=== PATIENT | female | born 2000 | race Caucasian/White ===

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

== ENCOUNTER 2021-02-04 04:00 | Outpatient (CLI) | payer BC, SELFPAY ==
[2021-02-04] VITALS (30 sets, daily range): BP systolic 99–121; BP diastolic 54–67; PULSE 56–107; RESP 17–18; TEMP 35.8–36.5; O2SAT 97–100; BMI 37.0
[2021-02-04 05:08] LABS: Bilirubin Urine Neg (Negative); Blood Urine Neg (Negative); Glucose Urine UA Norm (Normal); Ketones Urine Negative (Negative); Leukocyte Esterase Urine Negative (Negative); Nitrate Urine Negative (Negative); Protein Urine Neg (Negative); Urine Color Yellow (Yellow); Urobilinogen Urine Norm (Negative); pH Urine 7 (5-7)
[2021-02-04 05:09] LABS: Add Urine Culture? No; Bacteria Urine 3+ /hpf; Mucus Urine 2+ /hpf; RBC Urine 0-4 /hpf (0-2); Squamous Epithelial Cell Urine >100 /hpf (0-5); WBC Urine 0-4 /hpf (0-5)
[2021-02-04] MEDS: promethazine 25 mg/mL SDV 1 mL IM (05:56)
[2021-02-04 08:02] LABS: Basophils # 0.1 10^3/uL (0.0-0.1); Basophils % 0.4 %; Eosinophils % 0.1 %; Hematocrit 33.5 % (37.0-47.0); Hemoglobin 10.8 g/dL (11.5-15.3); Lymphocytes # 1.3 10^3/uL (1.5-6.5); Mean Corpuscular HGB Conc 32.2 g/dL (30.0-36.0); Mean Corpuscular Hemoglobin 27.5 pg (28.0-34.0); Mean Corpuscular Volume 85.2 fL (81-99); Mean Platelet Volume 10.8 fL (7.4-10.4); Monocytes # 0.3 10^3/uL (0.2-0.9); Monocytes % 2.5 %; Neutrophils # 10.98 10^3/uL (1.8-8.0); Neutrophils % 86.4 %; Nucleated Red Blood Cells % 0 %; Platelet Count 237 10^3/cmm (130-400); Red Blood Count 3.93 10^6/uL (4.1-5.3); Red Cell Distribution Width 13.4 % (12.1-15.1); White Blood Count 12.7 10^3/uL (4.5-13.0)
[2021-02-04 08:14] LABS: Alanine Aminotransferase 6 U/L (0-33); Albumin Level 3.3 g/dL (3.5-5.2); Alkaline Phosphatase 142 IU/L (35-105); Anion Gap 15.3 (5-19); Aspartate Amino Transferase 9 U/L (0-32); Blood Urea Nitrogen 5 mg/dL (6-20); Calcium 8.7 mg/dL (8.5-10.5); Carbon Dioxide 21 mmol/L (22-29); Chloride 108 mmol/L (98-107); Globulin 2.7 g/dL (1.3-4.6); Glomerular Filtration Rate 205.6 mL/min (90-130); Glucose 94 mg/dL (65-115); Osmolality Calculated 287 mOsm/kg (285-295); Potassium 4.3 mmol/L (3.5-5.1); Sodium 140 mmol/L (136-145); Total Bilirubin 0.2 mg/dL (0.15-1.2)
--- NOTE | 2021-03-14 10:04 | ANES.PREANE2 ---
Pre-Anesthetic Assessment Pre-Anesthetic Assessment: Height/Weight: Height 1.63 m Weight 97.976 kg Temp Pulse Resp BP Pulse Ox 96.5 F L 63 17 121/60 99 02/04/21 11:11 02/04/21 11:11 02/04/21 11:11 02/04/21 11:11 02/04/21 06:06 Preop Diagnosis: IUP Proposed Procedure: Epidural Familial anesthetic complications: None Social: Social History: No alcohol and No tobacco Exam: Pre-Anes Outpt Exam: alert, oriented x 3, clear to auscultation bilaterally and regular rate & rhythm Airway: MP: 4 Dentition: Full GI: GI: GERD Metabolic: Metabolic: Morbid obesity Anesthetic Plan: ASA status: 2 Anesthesia: Regional (specify below) (epidural) Risk of > 500 ml blood loss (7ml/kg in children): Yes, adequate IV access and fluids planned PFSH Anesthesia PFSH: Social History (Updated 08/22/20 @ 10:49 by Foster Rosen LPN) Smoking and tobacco status: never smoked Female Reproductive History: : 1 Data Anesthesia CBC & Chem 7: 02/04/21 07:45 02/04/21 07:45 Cardiac Studies: No Data to Display
== END 2021-02-04 11:07 | disposition home or self-care (01) ==
LOC: OPOB 04:20 → OBGYN 04:22
PROVIDERS: PCP Registered Nurse; Visit Provider Family Medicine
DX: O26.899 Other specified pregnancy related conditions, unspecified trimester (principal); Z3A.00 Weeks of gestation of pregnancy not specified; R10.9 Unspecified abdominal pain
CPT/HCPCS: 36415; 59025; 80053; 81001; 85025; 96372; 99211; J2550

== ENCOUNTER 2021-03-13 10:00 | Outpatient (CLI) | payer OTHER, BC, SELFPAY | END 2021-03-13 10:01 | LOC: OPS 08-10 03:25 | PROVIDERS: PCP Registered Nurse; Visit Provider Family Medicine | DX: Z01.818 Encounter for other preprocedural examination (principal); K80.20 Calculus of gallbladder without cholecystitis without obstruction ==

== ENCOUNTER 2021-03-20 04:35 | Inpatient (IN) | payer BC, MEDICAID, SELFPAY ==
[2021-03-20] VITALS (113 sets, daily range): BP systolic 103–149; BP diastolic 56–87; PULSE 58–133; RESP 16–18; TEMP 36.1–37.6; O2SAT 96–99; BMI 37.0
[2021-03-20] MEDS: lactated ringers 1,000 ML 999 ML IV ×2 (05:02→05:58)
[2021-03-20 05:15] LABS: Basophils # 0.1 10^3/uL (0.0-0.1); Basophils % 0.3 %; Eosinophils % 0.1 %; Hematocrit 34.7 % (37.0-47.0); Hemoglobin 11.5 g/dL (11.5-15.3); Lymphocytes % 10.7 %; Mean Corpuscular HGB Conc 33.1 g/dL (30.0-36.0); Mean Corpuscular Volume 81.5 fL (81-99); Mean Platelet Volume 10.6 fL (7.4-10.4); Monocytes # 0.5 10^3/uL (0.2-0.9); Monocytes % 2.5 %; Neutrophils # 16.11 10^3/uL (1.8-8.0); Neutrophils % 85.9 %; Nucleated Red Blood Cells % 0 %; Platelet Count 243 10^3/cmm (130-400); Red Blood Count 4.26 10^6/uL (4.1-5.3); Red Cell Distribution Width 14.6 % (12.1-15.1); White Blood Count 18.8 10^3/uL (4.5-13.0)
[2021-03-20] MEDS: ondansetron 2 mg/ML SDV 2 mL 4 MG IVP ×2 (05:33→15:00)
--- NOTE | 2021-03-20 06:13 | P.ANESUD_ITS ---
Pre-Anesthetic Update Pre-Anesthetic Assessment: Date of Surgery/Procedure: 03/20/21 Preop Alize gnosis: IUP Any changes to Pre-Anesthetic Assessment?: No Last Intake: 1800 Labs Last 48hrs: Laboratory Results - last 48 hr 03/20/21 04:55 WBC 18.8 H RBC 4.26 Hgb 11.5 Hct 34.7 L MCV 81.5 MCH 27.0 L MCHC 33.1 RDW 14.6 Plt Count 243 MPV 10.6 H Neut % (Auto) 85.9 Lymph % (Auto) 10.7 [place] % (Auto) 2.5 Eos % (Auto) 0.1 Baso % (Auto) 0.3 Neut # (Auto) 16.11 H Lymph # (Auto) 2.0 [place] # (Auto) 0.5 Eos # (Auto) 0.0 Baso # (Auto) 0.1 Nucleated RBC % (a uto) 0 Nucleated RBCs # 0.0 Vitals: Temperature 97.5 F L 03/20/21 05:15 Pulse Rate 79 03/20/21 06:09 Pulse Rhythm 03/20/21 04:38 Respiratory Effort Non-Labored 03/20/21 04:38 Respiratory Depth Normal 03/20/21 04:38 Respiratory Patter n 03/20/21 04:38 Blood Pressure 134/71 03/20/21 06:06 Pulse Oximetry 98 03/20/21 06:09 Oxygen Delivery Me thod 03/20/21 04:38 Exam: Pre-Anes Outpt Exam: alert, oriented x 3, clear to auscultation bilaterally and regular rate & rhythm Cardiac Studies: No Data to Display
--- NOTE | 2021-03-20 06:14 | ANES.PROC ---
Anesthesia Procedures Procedure/Date: 03/20/21 Epidural: Time Out Performed: Yes Consents Signed: Procedure Consent and No Consent Needed Consent: requested by attending/covering physician, from patient, risks and benefits reviewed and patient agrees to proceed Lumbar Level: L3-L4 Epidural position: sitting Epidural procedure: sterile prep of area, 1% lidocaine to numb the area, 18 g needle, neg for paresthesia, test dose given, 1.5% xylocaine 1:200k epi (5cc), 0.2% Ropivacaine bolus ml (6cc with 100 mcg Fentanyl), no systemic response, sterile dressing applied, L.U.D. no apparent complications and 0.2% Ropiavacaine @ mls/hr (13cc/hour) Additional Comments: JACKIE at 7 cm and cath placed 2 cm into space
[2021-03-20] MEDS: dextrose 5%-lactated ringers 1,000 ML 125 ML IV ×2 (08:01→14:06)
[2021-03-20] MEDS: metoclopramide 5 mg/mL SDV 2 mL 10 MG IV (09:17)
[2021-03-20] MEDS: oxytocin 30 UNIT/500 ML BAG IV (12:41)
[2021-03-20] MEDS: hyDROXYzine 25 mg Capsule 50 MG PO (15:00)
--- NOTE | 2021-03-20 15:45 | ANE.PACU2 ---
Inpatient post-anesthesia follow up: Vital signs: Temperature 99.1 F Pulse Rate 109 Respiratory Rate 18 Blood Pressure 133/76 Pulse Oximetry 99 Oxygen Delivery Me thod Room Air Oxygen Flow Rate Fraction of Inspir ed Oxygen Nausea and vomiting: No Pain level: 7 Additional Comments: Patient admits to increased pressure from progression of labor. 100 mcg fentanyl given per epidural.
[2021-03-20] MEDS: lactated ringers 1,000 ML 125 ML IV (16:58)
--- NOTE | 2021-03-20 20:38 | PM.DELIVERY ---
Delivery Note: Date of delivery: March 20, 2021 Pre-delivery diagnoses: 39-week 1 female in active labor and spontaneous rupture membranes Post-delivery diagnoses: Status post spontaneous vaginal delivery Procedure: Spontaneous vaginal delivery Op report anesthesia: Epidural Delivering Physician: Jacobo Holder Estimated blood loss (mL): 200 Pre-Delivery Course: The patient presented to the hospital on the day of delivery. She was having consistent contractions less than every 5 minutes. Her cervix dilated from a 1 to a 2, at about 5:00 in the morning she had spontaneous rupture of membranes. An epidural was placed. She then progressed to complete without difficulty. Her had been relatively unremarkable. She was GBS negative. Her blood type is O-. The remainder of her labs are within normal limits. Delivery: DELIVERY: The patient progressed to complete without difficulty. She delivered a male with a weight of 2960 g with Apgars of 2,6,7. The baby was delivered from the BLANCO position and placed on the mother's abdomen. The baby had poor tone, so the decision was made to immediately clamped and cut the cord. There was no nuchal cord. There was a body cord x1. There was no meconium. There was some purulent type material that came out at the same time of the infant. There was also an odor that was concerning for chorioamnionitis. The placenta and 3 vessel cord were delivered intact shortly thereafter. The perineum and vaginal vault were carefully examined. No significant lacerations were noted. The mother was noted to be in stable condition, and the baby was brought back to the level 2 nursery for further care. Due to the concern of chorioamnionitis, a single dose of ampicillin and gentamicin were given the mother. Post-Delivery Status: Good A&P Assessment and plan (1) 39 weeks gestation of : Status: Acute (2) Spontaneous rupture of membranes: Status: Acute (3) Active labor at term: Status: Acute (4) Spontaneous vaginal delivery: Anticipate routine care. She was given amp and gent 1 time a due to the probable chorioamnionitis. Because her baby is likely to be shipped to different facility, we will do our best to get her out of the hospital as quickly as possible. Status: Acute Coding Level of Care Code Acute Cyber Security Administrator for g Fwd Diagnoses 39 weeks gestation of Z3A.39 Spontaneous rupture of membranes Active labor at term Spontaneous vaginal delivery O80
[2021-03-20] MEDS: ibuprofen 800 mg tablet PO (21:03)
[2021-03-20] MEDS: benzocaine-menthol 78 gm Canister 1 SPRAY TOPICAL (21:03)
[2021-03-20] MEDS: ampicillin 2,000 MG in sodium chloride 0.9% (plus) 50 ML 100 MG IV (21:03)
--- NOTE | 2021-03-20 23:26 | PC.NURSE ---
Mother taken to nursery via wheelchair. Baby placed skin to skin with mother.
--- NOTE | 2021-03-20 23:27 | PC.NURSE ---
Mother remains in nursery sitting in wheelchair awaiting transfer of baby to NICU in [place], [place].
[2021-03-21] VITALS (13 sets, daily range): BP systolic 105–117; BP diastolic 59–65; PULSE 55–81; RESP 15–16; TEMP 36.2–37.2; O2SAT 97–98
[2021-03-21 04:05] LABS: Hematocrit 29.4 % (37.0-47.0); Hemoglobin 9.8 g/dL (11.5-15.3); Mean Corpuscular HGB Conc 33.3 g/dL (30.0-36.0); Mean Corpuscular Hemoglobin 27.6 pg (28.0-34.0); Mean Corpuscular Volume 82.8 fL (81-99); Mean Platelet Volume 10.5 fL (7.4-10.4); Platelet Count 175 10^3/cmm (130-400); Red Blood Count 3.55 10^6/uL (4.1-5.3); Red Cell Distribution Width 14.9 % (12.1-15.1); White Blood Count 25.2 10^3/uL (4.5-13.0)
--- NOTE | 2021-03-21 07:13 | P.DS_ITS ---
Discharge Providers ENGINEER SYSTEMS Date of Admission: 03/20/21 04:35 Date of Discharge: 03/21/21 Attending Provider at Admission: Jacobo Holder MD Attending Provider at Discharge: Jacobo Holder MD Primary Care Provider: JAMIR Norwood Diagnoses at Discharge Discharge Diagnosis (1) 39 weeks gestation of : Status: Acute (2) Spontaneous rupture of membranes: Status: Acute (3) Active labor at term: Status: Acute (4) Spontaneous vaginal delivery: Status: Acute Reason for Visit Reason for Visit: contractions Hospital Course Hospital Course The patient presented to the hospital in active labor. She had spontaneous rupture of membranes. An epidural was placed. She was placed on Pitocin a couple of different times during her labor process. She progressed to complete and had an unremarkable delivery of a 39-week male infant who was noted to be hypotonic. She did have a temperature to 99 7 during her labor process. She did appear to have some purulent material coming out the baby at the time of delivery and had a bad odor. Otherwise her course has been unremarkable. Her bleeding has been within normal limits. Her pain is been well controlled. She plans to breast-feed but because her baby is in the level 2 nursery she has been enrolled to breast-feed to this point. She will be discharged home this morning so she can go to see her baby that is currently in [place] [facility]. Information Peripartum Data: Infant Delivery Method: Vaginal Physical Exam Narrative: EXAM NARRATIVE: The patient is alert. She appears comfortable. Her heart has a regular rate and rhythm with no murmurs appreciated. Lungs are clear to auscultation bilaterally. Her fundus is firm and below the umbilicus. Urinary Catheter Management^: Vitale: Cath Placed During This Visit: yes, but has since been removed by the nurse Reason for Continuing Indwelling Catheter: Decision to DC Catheter Urinary Catheter Date of Insertion: 03/20/21 Urinary Catheter Time of Insertion: 06:25 Date Urinary Catheter Removed: 03/20/21 Time Urinary Catheter Discontinued: 17:53 Discharge Data Data Completed and Pending: Pending at discharge Category Date Time Status Maternal He morrhage Scrn Rout ine Lab 03/20/21 23:15 Received Labs from last 24 hours 03/21/21 03/20/21 03:55 04:55 WBC 25.2 H RBC 3.55 L Hgb 9.8 L Hct 29.4 L MCV 82.8 MCH 27.6 L MCHC 33.3 RDW 14.9 Plt Count 175 MPV 10.5 H Blood Type O Negative Rho(D) Type Negative / 0 Antibody Screen Negative Screen Negative Vitals: Last Vital Signs Temp 97.2 F L 03/21/21 06:02 Pulse 68 03/21/21 06:04 Resp 15 03/21/21 06:02 BP 107/63 03/21/21 06:04 Pulse Ox 98 03/21/21 06:02 Discharge Plan Discharge Patient Disposition: Home Condition: Stable Prescriptions: New ibuprofen 800 mg Tablet 800 mg PO TID Qty: 45 RF: 0 -U 106.5-1 mg Capsule 1 cap PO DAILY Qty: 90 RF: 0 Discharge Orders: Discharge Order (Routine); Ordered 03/21/21 Ordered By: Jacobo Holder Referrals: Jacobo Holder MD [Physician] - 6 Weeks Discharge Diet: Usual diet Discharge Activity: Limit activity as instructed Patient Instructions: Your Baby (GEN), and Nipple Soreness (GEN), and Your Diet (GEN), OB Discharge Report, OB Food/Drug Interaction Guide, OB Care at Home, Opioid Safety, OB Your Care - [place] [facility], OB Proud Parent Packet, OB Vaginal Deliveries Discharge Attestations ENGINEER SYSTEMS Time Spent in Discharge Care*: less than 30 min Coding Level of Care Code Acute Glue Wheel Operator for Chg Fwd Diagnoses 39 weeks gestation of Z3A.39 Spontaneous rupture of membranes Active labor at term Spontaneous vaginal delivery O80
[2021-03-21] MEDS: ibuprofen 800 mg tablet PO (07:28)
== END 2021-03-21 07:57 | disposition home or self-care (01) | DRG 807 ==
LOC: OPOB 04:36 → OBGYN 04:36
PROVIDERS: Admitting Provider Family Medicine; PCP Registered Nurse; Visit Provider Family Medicine
DX: O41.1230 Chorioamnionitis, third trimester, not applicable or unspecified (principal); Z37.0 Single live birth; Z3A.39 39 weeks gestation of pregnancy
CPT/HCPCS: 12345; 36415; 51702; 59025; 59409; 85025; 85027; 85460; 86850; 86900; 90384; 96374; 96375; 99211; J0290; J1580; J2405; J2765; J2795; J3010

== ENCOUNTER 2021-04-25 11:18 | Outpatient (CLI) | payer OTHER, BC, MEDICAID, SELFPAY ==
--- NOTE | 2021-04-25 11:45 | US_ITS ---
WS: [id number] RIGHT UPPER QUADRANT ULTRASOUND HISTORY: R10.11 - Right upper quadrant pain COMPARISON: None available. Liver: 17.1 cm in length. Normal size liver. No bile duct dilatation or mass. Gallbladder: Large amount shadowing from the region of the gallbladder fossa. Gallbladder is not othe rwise identified. CBD: 0.6 cm Pancreas: Normal size and echogenicity. Right kidney: 10.5 cm in length. Normal size and echogenicity. No hydronephrosis or mass. Aorta and IVC: Unremarkable abdominal aorta and IVC. No ascites. US/US gall bladder 37257 IMPRESSION: 1. Gallbladder not identified. Large amount shadowing from the gallbladder fos sa. Findings are consistent with a stone filled gallbladder. 2. Common bile duct is top normal size. No biliary dilatation.
== END 2021-04-25 11:19 | disposition home or self-care (01) ==
LOC: RAD 11:21
PROVIDERS: PCP Registered Nurse; Visit Provider Registered Nurse
DX: R10.11 Right upper quadrant pain (principal)
CPT/HCPCS: 76705

== ENCOUNTER → 2021-05-09 11:16 | Outpatient (BNVA) | payer BC, MEDICAID, SELFPAY | PROVIDERS: PCP Registered Nurse; Visit Provider Surgery | DX: Z11.52 Encounter for screening for COVID-19 (principal) | CPT/HCPCS: 87635 ==

== ENCOUNTER → 2021-06-02 12:57 | Outpatient (BNVA) | payer OTHER, BC, SELFPAY | PROVIDERS: PCP Registered Nurse; Visit Provider Surgery | DX: Z01.812 Encounter for preprocedural laboratory examination (principal); Z20.822 Contact with and (suspected) exposure to COVID-19 | CPT/HCPCS: 87635 ==

== ENCOUNTER 2021-06-07 07:31 | Day surgery (SDC) | payer OTHER, BC, MEDICAID, SELFPAY ==
[2021-06-06 17:25] VITALS: BMI 34.3
[2021-06-07] VITALS (8 sets, daily range): BP systolic 119–164; BP diastolic 66–97; PULSE 52–76; RESP 12–19; TEMP 36.2–36.5; O2SAT 94–100
[2021-06-07 07:58] LABS: OR HCG Qualitative Urine Negative (Negative)
--- NOTE | 2021-06-07 08:20 | ANES.PREANE2 ---
Pre-Anesthetic Assessment Pre-Anesthetic Assessment: Height/Weight: Height 1.63 m Weight 90.718 kg Temp Pulse Resp BP Pulse Ox 97.5 F L 76 16 121/78 99 06/07/21 07:50 06/07/21 07:50 06/07/21 07:50 06/07/21 07:50 06/07/21 07:50 Preop Diagnosis: Cholelithiasis Proposed Procedure: Operation Date: 06/07/21 09:05 Proposed Procedures p Laparoscopic Cholecystectomy 84694 k80.20(Not Applicable) - Rudi Lamb MD Familial anesthetic complications: None Was Beta Gloria taken within 24 hours: N/A Was Clonidine taken within 24 hours: N/A Last intake: > 8hrs Social: Social History: No alcohol and No tobacco Exam: Pre-Anes Outpt Exam: alert, oriented x 3, clear to auscultation bilaterally and regular rate & rhythm Airway: Cervical ROM: WNL MP: 4 Dentition: Full Metabolic: Metabolic: Morbid obesity Anesthetic Plan: ASA status: 2 Anesthesia: General Risk of > 500 ml blood loss (7ml/kg in children): No PFSH Anesthesia PFSH: Surgical History History of tonsillectomy and adenoidectomy 2007 Social History Smoking and tobacco status: never smoked Female Reproductive History: Date of last menstrual period: 05/16/21 Data Anesthesia Other Labs: Laboratory Results - last 48 hr 06/07/21 07:38 Urine HCG, Qual Negative Cardiac Studies: No Data to Display
[2021-06-07] MEDS: sodium chloride 0.9% 1,000 ML 30 ML IV (08:27)
--- NOTE | 2021-06-07 09:35 | W.PM.OPSFHP ---
Same Day Surgery H&P Indication for Procedure/HPI DATE OF PROCEDURE: June 07, 2021 CHIEF COMPLAINT/INDICATIONFOR SURGICAL PROCEDURE: Cholelithiasis requiring laparoscopic cholecystectomy PREOP DIAGNOSIS: Cholelithiasis PLANNED PROCEDRUE: Operation Date: 06/07/21 09:05 Proposed Procedures p Laparoscopic Cholecystectomy 22586 k80.20(Not Applicable) - Rudi Lamb MD Medications/Allergies* Home Medications Medication Instructions Recorded Confirmed Type oxycodone-acetaminophen [Percocet] 1 tab PO Q4H PRN 06/06/21 06/07/21 History Allergies/Adverse Reactions Allergy/AdvReac Type Severity Reaction Status Date / Time No Known Allergies Allergy Verified 04/18/21 11:08 Current Medications: Generic Name Dose Route Start Last Admin Trade Name Freq PRN Reason Stop Dose Admin Sodium Chloride 1,000 mls @ 30 mls/hr 06/07/21 07:45 06/07/21 08:27 Sodium Chloride 0.9% IV 06/08/21 07:44 30 mls/hr .Q24H SHANDA Administration Pertinent History/Comorbid Conditions* Surgical History (Updated 05/01/21 @ 10:57 by Rudi Lamb MD) History of tonsillectomy and adenoidectomy 2007 Social History Smoking and tobacco status: never smoked Pertinent Exam Findings alert, oriented x 3 and regular rate & rhythm Recommendations Surgery/Procedure today Coding Level of Care Code Acute Asset Protection Assistant for Terry Livingston
--- NOTE | 2021-06-07 10:47 | PM.OP ---
Operative Report Date of procedure: June 07, 2021 Pre-op Diagnosis: Cholelithiasis Post-op diagnosis: same Procedure Done: Laparoscopic cholecystectomy Specimens removed/disposition: Gallbladder Surgeon: Rudi Lamb Anesthesia: General Condition: stable Disposition: PACU Procedure: The patient was taken to the operating room and was intubated under general anesthesia. After the antibiotic had been administered, the abdomen was prepped and draped in a sterile manner. Using a #15 blade, a 1 centimeter infraumbilical curvilinear incision was made and using an open Stacy technique the peritoneal cavity was entered. A 10 millimeter port was placed and 15 millimeters of pneumoperitoneum was created. A 10 millimeter, 30 degrees scope was then introduced. Three 5 millimeter ports were placed in the epigastric, midclavicular and the anterior axillary line two fingerbreadths below the costal margin on the right side under the direct visualization. Ratcheted forceps were introduced into the lateral most port and was used to retract the fundus of the gallbladder cephalad and using forceps the infundibulum of the gallbladder was retracted laterally. Using L-hook cautery the peritoneum overlying the Calot's triangle was opened medially and laterally until the cystic duct and the cystic artery were skeletonized. Dissection was carried along the body of the gallbladder and after ensuring critical view of safety, 4 clips applied on the cystic duct and 3 clips applied on the cystic artery and cut leaving, 3 clips on the remaining portion of the duct and 2 clips on the remaining portion of the artery. The rest of the gallbladder was dissected off the liver using L-hook cautery. There was no bleeding or bile leaking noted from the gallbladder fossa and the clips appeared to be in place. An EndoCatch bag was introduced to remove the gallbladder. All the ports were removed under direct visualization and there was no bleeding noted from the port sites. The fascia of the umbilicus was closed using [id number] 0 Vicryl sutures and the subcutaneous tissue was approximated using 3-0 Vicryl sutures. The skin at all four ports were closed using 4-0 Monocryl and Dermabond. A total of 10 millimeters of 0.5% Marcaine was infiltrated around the port sites. The patient was stable throughout the procedure.
--- NOTE | 2021-06-07 11:08 | P.PCN_ITS ---
PACU note PACU note: VSS, Good respiratory effort, report to SCRIPT GIRL Post-Anesthesia Exam: awake
--- NOTE | 2021-06-07 11:08 | PM.PACU ---
PACU note PACU note: VSS, Good respiratory effort, report to PICKLING OPERATOR Post-Anesthesia Exam: awake
[2021-06-07] MEDS: ondansetron 2 mg/ML SDV 2 mL 4 MG IVP ×2 (11:16→11:53)
--- NOTE | 2021-06-07 11:52 | SUR.PHASEII ---
re medicated for nausea.
[2021-06-07] MEDS: HYDROcodone-acetaminophen 5-325 mg Tablet 1 TAB PO (13:26)
--- NOTE | 2021-06-07 16:24 | ANE.PACU2 ---
Inpatient post-anesthesia follow up: Airway intact: Yes Vital signs: Temperature 97.7 F Pulse Rate 68 Respiratory Rate 18 Blood Pressure 119/66 Pulse Oximetry 98 Oxygen Delivery Me thod Room Air Oxygen Flow Rate 8 Fraction of Inspir ed Oxygen Hydration adequate: Yes Nausea and vomiting: No Pain level: 2 Mental status: Baseline
== END 2021-06-07 13:40 | disposition home or self-care (01) ==
PROVIDERS: Anesthesiology; PCP Registered Nurse; Visit Provider Surgery
PROC: 0FT44ZZ Resection of Gallbladder, Percutaneous Endoscopic Approach (ICD-10-PCS; CPT 47562; principal; 2021-06-07 09:05)
DX: K80.10 Calculus of gallbladder with chronic cholecystitis without obstruction (principal); E66.01 Morbid (severe) obesity due to excess calories; Z68.34 Body mass index [BMI] 34.0-34.9, adult
CPT/HCPCS: 47562; 84703; 88304; 96365; J0690; J1100; J2405; J2704; J2710; J3010; J3490; J7030